=== PATIENT | male | born 1960 | race Caucasian/White ===

== ENCOUNTER 2025-05-31 12:34 | Outpatient (CLI) | payer BC ==
[~2025-05-31 12:34] MED LIST: Iopamidol 300 61% 100 ML VIAL FS ONE
[2025-05-31 13:47] LABS: Estimated GFR - POC 85.0
== END 2025-05-31 12:35 | disposition home or self-care (01) ==
LOC: CSHCT 12:34
PROVIDERS: ATTEND Family Medicine
DX: R10.32 Left lower quadrant pain (principal); K57.30 Diverticulosis of large intestine without perforation or abscess without bleeding; K52.9 Noninfective gastroenteritis and colitis, unspecified
CPT/HCPCS: 74178; 82565